=== PATIENT | male | born 1985 | race Two or more races ===

== ENCOUNTER → 2025-03-02 | Emergency (ER) | payer OTHER ==
[~2025-03-02] VITALS: Ht 180.3 cm; Wt 127.0 kg
[~2025-03-02] MED LIST: KETOROLAC TROMETHAMINE 60 MG VIAL IM ONE; ORPHENADRINE CITRATE 30 MG/ML AMPUL IM ONE; ORPHENADRINE CITRATE 30 MG/ML AMPUL ONE
== END | disposition home or self-care (01) ==
LOC: ER 19:07
DX: M54.50 Low back pain, unspecified (principal)